=== PATIENT | female | born 1975 | race Caucasian/White ===

== ENCOUNTER 2018-08-13 03:26 | Emergency (ER) | payer MEDICARE, MEDICAID ==
[2018-08-13] MEDS ORDERED: IPRATROPIUM/ALBUTEROL 0.5-2.5 MG/3 ML AMPUL NEB ONE (03:56)
[2018-08-13] MEDS ORDERED: CLONAZEPAM 1 MG TABLET PO ONE (03:56)
[2018-08-13] MEDS ORDERED: NORMAL SALINE 1000 ML 1,000 ML IV ONE (03:57)
[2018-08-13] MEDS ORDERED: ONDANSETRON HCL INJ/PF 4 MG/2 ML SDV IV ONE (03:57)
--- NOTE | 2018-08-13 03:59 | ER Document Report ---
ED General - General Chief Complaint: Nausea/Vomiting Stated Complaint: VOMITING Time Seen by Provider: 08/13/18 03:49 Primary Care Provider: MEGA ECHOLS MD [NO LOCAL MD] - Follow up tomorrow Notes: Patient is a 43-year-old female that comes to the emergency department for chief complaint of sick symptoms for 1 week. She states that she has had a worsening cough to the point that she has vomited 3 times over the past day after coughing episodes. She reports some chills, denies fever. Mild congestion present. Minimal sore throat. Denies particular area of abdominal pain. She has had the influenza vaccine. She smokes, has a history of bipolar, anxiety, PTSD. She is out of her medications including antidepressants, antianxiety medication such as Klonopin. TRAVEL OUTSIDE OF THE [place] IN LAST 30 DAYS: No - Related Data Allergies/Adverse Reactions: No Known Allergies Allergy (Verified 04/13/14 08:54) Past Medical History - General Information source: Patient - Social History Smoking Status: Current Every Day Smoker Smoking Education Provided: Yes - <3 min Frequency of alcohol use: Occasional Drug Abuse: None Lives with: Family Family History: Reviewed & Not Pertinent - Past Medical History Cardiac Medical History: Reports: Hx Hypercholesterolemia Denies: Hx Coronary Artery Disease, Hx Heart Attack, Hx Hypertension Pulmonary Medical History: Reports: Hx Bronchitis Denies: Hx Asthma, Hx COPD, Hx Pneumonia Neurological Medical History: Denies: Hx Cerebrovascular Accident, Hx Seizures GI Medical History: Denies: Hx Hepatitis, Hx Hiatal Hernia, Hx Ulcer Musculoskeletal Medical History: Reports Hx Arthritis - shins and wrist Psychiatric Medical History: Reports: Hx Anxiety, Hx Bipolar Disorder, Hx Depression, Hx Post Traumatic Stress Disorder Infectious Medical History: Denies: Hx Hepatitis Past Surgical History: Reports: Hx Orthopedic Surgery - R hand. Denies: Hx Hyst erectomy, Hx Mastectomy, Hx Open Heart Surgery, Hx Pacemaker - Immunizations Hx Diphtheria, Pertussis, Tetanus Vaccination: Yes - not within 5 years of 2014 Review of Systems - Review of Systems Constitutional: See HPI EENT: See HPI Cardiovascular: No symptoms reported Respiratory: See HPI Gastrointestinal: See HPI Genitourinary: No symptoms reported Female Genitourinary: No symptoms reported Musculoskeletal: No symptoms reported Skin: No symptoms reported Hematologic/Lymphatic: No symptoms reported Neurological/Psychological: No symptoms reported Physical Exam - Vital signs Vitals: Temp Pulse Resp BP Pulse Ox 97.8 F 98 14 111/77 97 08/13/18 03:27 08/13/18 03:27 08/13/18 03:27 08/13/18 03:08/13/18 03:27 - Notes Notes: GENERAL: Alert, interacts well. No acute distress. HEAD: Normocephalic, atraumatic. EYES: Pupils equal, round, and reactive to light. Extraocular movements intact. ENT: Oral mucosa moist, tongue midline. Oropharynx unremarkable. Airway patent. Congestion nasal passages with mixed clear and yellowish discharge, tender over the right maxillary sinus, making sinuses unremarkable. No nasal septal hematoma, TM's intact. NECK: Full range of motion. Supple. Trachea midline. LUNGS: Occasional congested cough. Clear lungs otherwise. No respiratory distress. HEART: Regular rate and rhythm. No murmur ABDOMEN: Soft, non-tender. Non-distended. Bowel sounds present in all 4 quadra nts. GENITOURINARY: Deferred EXTREMITIES: Moves all 4 extremities spontaneously. No edema, normal radial and dorsalis pedis pulses bilaterally. No cyanosis. BACK: no cervical, thoracic, lumbar midline tenderness. No saddle anesthesia, normal distal neurovascular exam. NEUROLOGICAL: Alert and oriented x3. Normal speech. [cranial nerves II through XII grossly intact]. PSYCH: Normal affect, normal mood. SKIN: Warm, dry, normal turgor. No rashes or lesions noted. Course - Re-evaluation Re-evalutation: Patient with congested cough on evaluation. Soft benign abdomen. Clear lungs on auscultation. She does have sinus tenderness on exam, worse on the right in the maxillary sinuses along with sinus congestion and reported intermittent yellowish discharge. Symptoms have been worsening for the course of a week. Suggestive of developing bacterial sinusitis because of the amount of pain she has over her right maxillary sinus. Chest x-ray unremarkable, laboratory workup unremarkable. Patient given IV fluids. She states she feels much better on reevaluation. She was given a single dose of her Klonopin. She has close follow-up for this. Discussion was made with patient. She does have some anterior cervical adenopathy and she is requesting something for this. She also has worsening cough with coughing until vomiting intermittently. No wheezing on my her with a dose of dexamethasone steroid for treatment of suspected bronchitis, she will be treated with amoxicillin for suspected developing bacterial sinusitis, she will be provided with symptom relief in the form of Tessalon, and she will follow-up with her pr imary care for a refill of her prescriptions. Discussed return precautions. Patient states understanding and agreement with plan. - Vital Signs Vital signs: Temp Pulse Resp BP Pulse Ox 98.0 F 77 14 92/48 L 95 08/13/18 06:27 08/13/18 06:27 08/13/18 06:27 08/13/18 06:27 08/13/18 06:27 - Laboratory Result Diagrams: 08/13/18 04:22 08/13/18 04:22 Laboratory results interpreted by me: 08/13/18 08/13/18 04:11 04:22 Chloride 108 H Urine Urobilinogen 2.0 H Urine Ascorbic Acid 40 H Discharge - Discharge Clinical Impression: Upper respiratory infection Qualifiers: URI type: unspecified URI Qualified Code(s): J06.9 - Acute upper respiratory infection, unspecified Sinusitis Qualifiers: Sinusitis location: maxillary Chronicity: acute Recurrence: non-recurrent Qualified Code(s): J01.00 - Acute maxillary sinusitis, unspecified Condition: Stable Disposition: HOME, SELF-CARE Additional Instructions: Your evaluation is consistent with bronchitis and a sinus infection. You have been in treatment this for dexamethasone, take amoxicillin antibiotic as prescribed to completion. Take Tessalon as needed for cough. Take the medication provided from here this morning at night only for cough and sleep only if needed. Follow-up closely with your primary care provider. Return if you worsen including fever, difficulty breathing, or any other concerning or worsening symptoms. Prescriptions: Benzonatate [Tessalon Perle 100 mg Capsule] 100 mg PO Q8HP PRN #20 cap PRN Reason: Amoxicillin Trihydrate [Amoxil 500 mg Capsule] 1,000 mg PO TID 7 Days #42 cap Referrals: MEGA ECHOLS MD [NO LOCAL MD] - Follow up tomorrow
[2018-08-13 04:38] LABS: APPEARANCE,URINE CLOUDY; BILIRUBIN,URINE NEGATIVE (NEGATIVE); COLOR,URINE AMBER; GLUCOSE, URINE NEGATIVE (NEGATIVE); KETONES,URINE NEGATIVE (NEGATIVE); LEUKOCYTE ESTERASE,URINE NEGATIVE (NEGATIVE); NITRITE,URINE NEGATIVE (NEGATIVE); PROTEIN,URINE NEGATIVE (NEGATIVE)
[2018-08-13 04:39] LABS: ABSOLUTE BASOPHILS # (AUTO) 0.1 10^3/uL (0.0-0.2); ABSOLUTE EOSINOPHILS # (AUTO) 0.2 10^3/uL (0.0-0.6); ABSOLUTE LYMPHOCYTES (AUTO) 2.7 10^3/uL (0.5-4.7); ABSOLUTE MONOCYTES (AUTO) 0.5 10^3/uL (0.1-1.4); ABSOLUTE NEUT (AUTO) 4.4 10^3/uL (1.7-8.2); BASOPHILS % (AUTO) 0.9 % (0-2); EOSINOPHILS % (AUTO) 2.1 % (0-6); HEMATOCRIT 38.3 % (36.0-47.0); HEMOGLOBIN 12.9 g/dL (12.0-15.5); LYMPHOCYTES % (AUTO) 34.8 % (13-45); MEAN CORPUSCULAR HGB CONC 33.7 g/dL (32.0-36.0); MEAN CORPUSCULAR VOLUME 92 fl (80-97); MONOCYTES % (AUTO) 6.4 % (3-13); PLATELET COUNT 400 10^3/uL (150-450); RED BLOOD COUNT 4.17 10^6/uL (3.72-5.28); RED CELL DISTRIBUTION WIDTH 13.1 % (11.5-14.0); SEGMENTED NEUTROPHILS % (AUTO) 55.8 % (42-78); TOTAL CELLS COUNTED % (AUTO) 100 %; WHITE BLOOD COUNT 7.9 10^3/uL (4.0-10.5)
[2018-08-13 04:58] LABS: ANION GAP 10 (5-19); BLOOD UREA NITROGEN 13 mg/dL (7-20); CALCIUM 9.9 mg/dL (8.4-10.2); CARBON DIOXIDE 24 mmol/L (22-30); CHLORIDE 108 mmol/L (98-107); GLUCOSE 93 mg/dL (75-110); SODIUM 141.6 mmol/L (137-145)
--- NOTE | 2018-08-13 05:19 | RADIOLOGY REPORT (SQ) ---
EXAM DESCRIPTION: XR CHEST 2 VIEWS COMPLETED DATE/TME: 08/13/2018 03:57 CLINICAL HISTORY: 43 years Female, productive cough x 1 week COMPARISON: April 02, 2014 NUMBER OF VIEWS/TECHNIQUE: 2, Frontal, Lateral FINDINGS: Adequate lung volume, clear parenchyma, normal cardiac silhouette, and intact bony thorax. IMPRESSION: No acute cardiopulmonary findings.
[2018-08-13] MEDS ORDERED: DEXAMETHASONE SOD PHOS INJ 10 MG/1 ML VIAL IV ONE (06:00)
[2018-08-13] MEDS ORDERED: HYDROCODONE/ACETAMINOPHEN 5-325 MG (6 TAB/ER DISP) PO PRN (06:01)
[2018-08-13 06:44] VITALS: BP 92/48
== END 2018-08-13 06:44 | disposition home or self-care (01) ==
LOC: ER 03:26
DX: J06.9 Acute upper respiratory infection, unspecified (principal); J01.00 Acute maxillary sinusitis, unspecified; R11.2 Nausea with vomiting, unspecified; F17.200 Nicotine dependence, unspecified, uncomplicated; E78.00 Pure hypercholesterolemia, unspecified
CPT/HCPCS: 94640; 99284; 96361; 96374; 96375; 36415; 84703; 85025; 80048; 81001; 71046; A9270 ×3; J2405; J7030; J1100; J7620

== ENCOUNTER 2018-10-08 12:57 | Emergency (ER) | payer MEDICARE, MEDICAID ==
[2018-10-08] MEDS ORDERED: IPRATROPIUM/ALBUTEROL 0.5-2.5 MG/3 ML AMPUL NEB ONE (13:56)
[2018-10-08] MEDS ORDERED: KETOROLAC TROMETHAMINE 60 MG/2 ML SDV IM ONE (13:57)
--- NOTE | 2018-10-08 13:58 | ER Document Report ---
ED Medical Screen (RME) - General Chief Complaint: Congestion Stated Complaint: COUGH,CONGESTION,HEADACHE Time Seen by Provider: 10/08/18 13:46 Notes: Patient is a 43-year-old female that presents to the emergency department for chief complaint of cough, congestion, and multiple other points including body aches, nausea and vomiting. Patient states she thinks she has flulike symptoms, she is intense for 4 days now, she reports about a month ago she had similar symptoms and was diagnosed with an upper respiratory tract infection. ROS: Other than noted above, the 12 point review of systems was reviewed with the patient and were negative, all pertinent findings are included in the HPI. PHYSICAL EXAMINATION: Vital signs reviewed. GENERAL: Well-appearing, well-nourished and in no acute distress. HEAD: Atraumatic, normocephalic. EYES: Pupils equal round extraocular movements intact, conjunctiva are normal. ENT: Bilateral nasal turbinate injection, there is a mild effusion behind the right TM, none on the left. NECK: Normal range of motion CV: Heart regular rate and rhythm LUNGS: No respiratory distress Musculoskeletal: Normal range of motion NEUROLOGICAL: Normal speech PSYCH: Normal mood, normal affect. MDM: Patient seen and examined for rapid initial assessment. Vital signs reviewed. A comprehensive ED assessment and evaluation of the patient, analysis of test results and completion of the medical decision making process will be conducted by additional ED providers. *Note is created using voice recognition software and may contain spelling, syntax or grammatical errors. TRAVEL OUTSIDE OF THE [place] IN LAST 30 DAYS: No - Related Data Allergies/Adverse Reactions: No Known Allergies Allergy (Verified 10/08/18 13:46) Past Medical History - Social History Frequency of alcohol use: None Drug Abuse: None - Past Medical History Cardiac Medical History: Reports: Hx Hypercholesterolemia Denies: Hx Coronary Artery Disease, Hx Heart Attack, Hx Hypertension Pulmonary Medical History: Reports: Hx Bronchitis Denies: Hx Asthma, Hx COPD, Hx Pneumonia Neurological Medical History: Denies: Hx Cerebrovascular Accident, Hx Seizures Renal/ Medical History: Denies: Hx Peritoneal Dialysis GI Medical History: Denies: Hx Hepatitis, Hx Hiatal Hernia, Hx Ulcer Musculoskeltal Medical History: Reports Hx Arthritis - shins and wrist Psychiatric Medical History: Reports: Hx Anxiety, Hx Bipolar Disorder, Hx Depression, Hx Post Traumatic Stress Disorder Infectious Medical History: Denies: Hx Hepatitis Past Surgical History: Reports: Hx Orthopedic Surgery - R hand. Denies: Hx Hysterectomy, Hx Mastectomy, Hx Open Heart Surgery, Hx Pacemaker - Immunizations Hx Diphtheria, Pertussis, Tetanus Vaccination: Yes - not within 5 years of 2014 Physical Exam - Vital signs Vitals: Temp Pulse Resp BP Pulse Ox 99.0 F 107 H 20 109/60 97 10/08/18 13:06 10/08/18 13:06 10/08/18 13:06 10/08/18 13:06 10/08/18 13:06 Course - Vital Signs Vital signs: Temp Pulse Resp BP Pulse Ox 99.0 F 107 H 20 109/60 97 10/08/18 13:06 10/08/18 13:06 10/08/18 13:06 10/08/18 13:06 10/08/18 13:06
--- NOTE | 2018-10-08 14:41 | RADIOLOGY REPORT (SQ) ---
EXAM DESCRIPTION: CHEST 2 VIEWS COMPLETED DATE/TIME: 10/08/2018 2:22 pm REASON FOR STUDY: cough, wheezing COMPARISON: Two-view chest 08/13/2018 EXAM PARAMETERS: NUMBER OF VIEWS: two views TECHNIQUE: Digital Frontal and Lateral radiographic views of the chest acquired. RADIATION DOSE: NA LIMITATIONS: none FINDINGS: LUNGS AND PLEURA: No opacities, masses or pneumothorax. No pleural effusion. MEDIASTINUM AND HILAR STRUCTURES: No masses or contour abnormalities. HEART AND VASCULAR STRUCTURES: Heart normal size. No evidence for failure. BONES: No acute findings. HARDWARE: None in the chest. OTHER: No other significant finding. IMPRESSION: NO ACUTE RADIOGRAPHIC FINDING IN THE CHEST. TECHNICAL DOCUMENTATION: JOB ID: [id number] [employer]- All Rights Reserved Reading location - IP/workstation name: [email or web address]
[2018-10-08 15:22] LABS: A TYPE INFLUENZA AG NEGATIVE (NEGATIVE); B INFLUENZA AG NEGATIVE (NEGATIVE)
--- NOTE | 2018-10-08 15:56 | ER Document Report ---
ED General - General Chief Complaint: Congestion Stated Complaint: COUGH,CONGESTION,HEADACHE Time Seen by Provider: 10/08/18 13:46 TRAVEL OUTSIDE OF THE [place] IN LAST 30 DAYS: No - HPI Notes: Patient is a 43-year-old female who presents to the ED complaining of nasal congestion/discharge, dry nonproductive cough, body ache 4 days. She has also had occ n/v and watery diarrhea x3 days. No n/v today. Patient states that she is still eating and drinking without difficulties, but does have a decreased p.o. intake. She is still urinating normally having normal bowel movements. Patient has been using some [id number] meds for symptoms. She denies any significant past medical history including cardiopulmonary history and immunocompromised conditions. H/o MH. Denies any current headache, neck pain, sore throat, chest pain, palpitations, syncope, shortness of breath, wheeze, dyspnea, abdominal pain, urinary retention, dysuria, hematuria, or rash. Pt states has had symptoms like this 1.5mos ago. - Related Data Allergies/Adverse Reactions: No Known Allergies Allergy (Verified 10/08/18 13:46) Past Medical History - Social History Smoking Status: Current Every Day Smoker Frequency of alcohol use: None Drug Abuse: None Family History: Reviewed & Not Pertinent Patient has suicidal ideation: No Patient has homicidal ideation: No - Past Medical History Cardiac Medical History: Reports: Hx Hypercholesterolemia Denies: Hx Coronary Artery Disease, Hx Heart Attack, Hx Hypertension Pulmonary Medical History: Reports: Hx Bronchitis Denies: Hx Asthma, Hx COPD, Hx Pneumonia Neurological Medical History: Denies: Hx Cerebrovascular Accident, Hx Seizures Renal/ Medical History: Denies: Hx Peritoneal Dialysis GI Medical History: Denies: Hx Hepatitis, Hx Hiatal Hernia, Hx Ulcer Musculoskeletal Medical History: Reports Hx Arthritis - shins and wrist Psychiatric Medical History: Reports: Hx Anxiety, Hx Bipolar Disorder, Hx Depression, Hx Post Traumatic Stress Disorder Infectious Medical History: Denies: Hx Hepatitis Past Surgical History: Reports: Hx Orthopedic Surgery - R hand. Denies: Hx Hysterectomy, Hx Mastectomy, Hx Open Heart Surgery, Hx Pacemaker - Immunizations Hx Diphtheria, Pertussis, Tetanus Vaccination: Yes - not within 5 years of 2015 Review of Systems - Review of Systems -: Yes All other systems reviewed and negative Physical Exam - Vital signs Vitals: Temp Pulse Resp BP Pulse Ox 99.0 F 107 H 20 109/60 97 10/08/18 13:06 10/08/18 13:06 10/08/18 13:06 10/08/18 13:06 10/08/18 13:06 - Notes Notes: PHYSICAL EXAMINATION: GENERAL: Well-appearing, well-nourished and in no acute distress. A&Ox4. Answers questions appropriately. Moves comfortably w/o notable distress HEAD: Atraumatic, normocephalic. EYES: Pupils equal round and reactive to light, extraocular movements intact, sclera anicteric, conjunctiva are normal. ENT: EAC clear b/l. TM's intact b/l without erythema or perforation. Nares patent and with clear discharge. oropharynx no erythema without exudates. No tonsilar hypertrophy without erythema or exudate. No palatine shift. Uvula midline. No tongue protrusion. No drooling, hoarseness, or airway compromise. Moist mucous membranes. No sinus tenderness. NECK: Normal range of motion, supple without lymphadenopathy. No rigidity/meningismus. LUNGS: Breath sounds clear to auscultation bilaterally and equal. No wheezes rales or rhonchi. No retractions HEART: Regular rate and rhythm without murmurs, rubs, gallops. ABDOMEN: Soft, nontender, nondistended abdomen. No guarding, no rebound. Normal bowel sounds present. No CVA tenderness bilaterally. No tenderness at [place]Bur[place]. Joshi neg. NEUROLOGICAL: Normal speech, normal gait. PSYCH: Normal mood, normal affect. SKIN: Warm, Dry, normal turgor, no rashes or lesions noted. Course - Re-evaluation Re-evalutation: 10/08/18 15:54 Patient is an afebrile, well-hydrated, 43-year-old female who presents to the ED with n/v/d and acute URI, suspect viral. Vitals are acceptable. PE is otherwise unremarkable. No labs or imaging warranted at this time based on H&P. Patient has no significant cardiopulmonary or immunocompromised medical conditions. Patient's lungs are clear to auscultation bilaterally without tachycardia, hypoxia, or tachypnea. Patient is tolerating p.o. without any difficulties. CXR unremarkable. Low suspicion for any meningitis, sepsis, peritonsillar/pharyngeal abscess, respiratory compromise, severe dehydration, or other emergent systemic condition at this time. Patient is aware this condition can change from initial presentation and she needs to monitor symptoms closely. Conservative measures otherwise for symptoms. Recheck with your PCM in 3-5 days. Return to the ED with any worsening/concerning symptoms otherwise as reviewed in discharge. Patient is in agreement. - Vital Signs Vital signs: Temp Pulse Resp BP Pulse Ox 99.0 F 107 H 20 109/60 97 10/08/18 13:06 10/08/18 13:06 10/08/18 13:06 10/08/18 13:06 10/08/18 13:06 Discharge - Discharge Clinical Impression: Acute URI, Nausea vomiting and diarrhea Condition: Stable Disposition: HOME, SELF-CARE Instructions: Viral Syndrome ([facility]), Diarrhea, Nonspecific ([facility]), Vomiting ([facility]), Upper Respiratory Illness ([facility]) Additional Instructions: Maintain adequate fluid intake tylenol/ibuprofen as needed together every 6 hours (tylenol 1000mg with 600mg ibuprofen) for 1-2 days for body ache/fever over the counter cold medication as needed for symptoms (benadryl, claritin, zyrtec, mucinex, etc). Probiotics may help your stomach. Humidified air may help Wash your hands regularly Wear a mask when coughing F/u: with your PCM in 3-5 days for a recheck Return to the ED with any fever, worsening pain, chest pain, palpitations, syncope, worsening PEREZ, neck pain/stiffness, shortness of breath, wheezing, drooling, trouble swallowing/breathing, abdominal pain, n/v/d, rash, or worsening/concerning symptoms otherwise. Forms: Return to Work Referrals: [facility] [Provider Group] - Follow up as needed [facility] [Provider Group] - Follow up as needed
[2018-10-08 16:28] VITALS: BP 99/55
== END 2018-10-08 16:28 | disposition home or self-care (01) ==
LOC: ER 12:57
DX: J06.9 Acute upper respiratory infection, unspecified (principal); R11.2 Nausea with vomiting, unspecified; R19.7 Diarrhea, unspecified; R51 Headache; F17.200 Nicotine dependence, unspecified, uncomplicated
CPT/HCPCS: 94640; 99284; 96372; 87804; 71046; J1885; A9270; J7620

== ENCOUNTER 2018-10-12 18:35 | Emergency (ER) | payer MEDICARE, MEDICAID ==
--- NOTE | 2018-10-12 18:57 | ER Document Report ---
ED Medical Screen (RME) - General Chief Complaint: Dizziness Stated Complaint: ANXIETY Time Seen by Provider: 10/12/18 18:54 Primary Care Provider: PRESLEY MURRELL MD [Primary Care Provider] - Follow up as needed Mode of Arrival: Medic Information source: Patient TRAVEL OUTSIDE OF THE [place] IN LAST 30 DAYS: No - HPI Patient complains to provider of: dizziness, anxiety Onset: This morning - pt was seen here 3 days ago for URI, N/V-- developed dizziness today with increased anxiety. EMS transported here for further evaluation - Related Data Allergies/Adverse Reactions: No Known Allergies Allergy (Verified 10/12/18 18:39) Past Medical History - Past Medical History Cardiac Medical History: Reports: Hx Hypercholesterolemia Denies: Hx Coronary Artery Disease, Hx Heart Attack, Hx Hypertension Pulmonary Medical History: Reports: Hx Bronchitis Denies: Hx Asthma, Hx COPD, Hx Pneumonia Neurological Medical History: Denies: Hx Cerebrovascular Accident, Hx Seizures Renal/ Medical History: Denies: Hx Peritoneal Dialysis GI Medical History: Denies: Hx Hepatitis, Hx Hiatal Hernia, Hx Ulcer Musculoskeltal Medical History: Reports Hx Arthritis - shins and wrist Psychiatric Medical History: Reports: Hx Anxiety, Hx Bipolar Disorder, Hx Depression, Hx Post Traumatic Stress Disorder Infectious Medical History: Denies: Hx Hepatitis Past Surgical History: Reports: Hx Orthopedic Surgery - R hand. Denies: Hx Hysterectomy, Hx Mastectomy, Hx Open Heart Surgery, Hx Pacemaker - Immunizations Hx Diphtheria, Pertussis, Tetanus Vaccination: Yes - not within 5 years of 2014 Physical Exam - Vital signs Vitals: Temp Pulse Resp BP Pulse Ox 97.6 F 78 18 112/70 100 10/12/18 18:48 10/12/18 18:48 10/12/18 18:48 10/12/18 18:48 10/12/18 18:48 Course - Vital Signs Vital signs: Temp Pulse Resp BP Pulse Ox 97.6 F 78 18 112/70 100 10/12/18 18:48 10/12/18 18:48 10/12/18 18:48 10/12/18 18:48 10/12/18 18:48 Doctor's Discharge - Discharge Referrals: PRESLEY MURRELL MD [Primary Care Provider] - Follow up as needed
[2018-10-12 19:34] LABS: ABSOLUTE LYMPHOCYTES (AUTO) 1.8 10^3/uL (0.5-4.7); ABSOLUTE MONOCYTES (AUTO) 0.4 10^3/uL (0.1-1.4); ABSOLUTE NEUT (AUTO) 5.4 10^3/uL (1.7-8.2); BASOPHILS % (AUTO) 0.4 % (0-2); EOSINOPHILS % (AUTO) 0.1 % (0-6); HEMATOCRIT 36.1 % (36.0-47.0); HEMOGLOBIN 12.5 g/dL (12.0-15.5); LYMPHOCYTES % (AUTO) 24.1 % (13-45); MEAN CORPUSCULAR HEMOGLOBIN 31.6 pg (27.0-33.4); MEAN CORPUSCULAR HGB CONC 34.5 g/dL (32.0-36.0); MEAN CORPUSCULAR VOLUME 92 fl (80-97); MONOCYTES % (AUTO) 4.9 % (3-13); PLATELET COUNT 524 10^3/uL (150-450); RED BLOOD COUNT 3.93 10^6/uL (3.72-5.28); RED CELL DISTRIBUTION WIDTH 13.3 % (11.5-14.0); SEGMENTED NEUTROPHILS % (AUTO) 70.5 % (42-78); TOTAL CELLS COUNTED % (AUTO) 100 %; WHITE BLOOD COUNT 7.7 10^3/uL (4.0-10.5)
[2018-10-12 19:51] LABS: ALANINE AMINOTRANSFERASE 20 U/L (9-52); ALBUMIN 4.5 g/dL (3.5-5.0); ALKALINE PHOSPHATASE 51 U/L (38-126); ANION GAP 11 (5-19); ASPARTATE AMINO TRANSFERASE 17 U/L (14-36); BILIRUBIN,DIRECT 0.3 mg/dL (0.0-0.4); BILIRUBIN,TOTAL 0.5 mg/dL (0.2-1.3); BLOOD UREA NITROGEN 11 mg/dL (7-20); CALCIUM 10.3 mg/dL (8.4-10.2); CARBON DIOXIDE 19 mmol/L (22-30); CHLORIDE 105 mmol/L (98-107); GLUCOSE 104 mg/dL (75-110); POTASSIUM 4.5 mmol/L (3.6-5.0); SODIUM 134.6 mmol/L (137-145); TOTAL PROTEIN 7.5 g/dL (6.3-8.2)
[2018-10-12] MEDS ORDERED: DIAZEPAM 5 MG TABLET PO ONE (22:41)
[2018-10-12 22:46] LABS: APPEARANCE,URINE CLOUDY; BILIRUBIN,URINE NEGATIVE (NEGATIVE); COLOR,URINE YELLOW; GLUCOSE, URINE NEGATIVE (NEGATIVE); KETONES,URINE 20 mg/dL (NEGATIVE); LEUKOCYTE ESTERASE,URINE NEGATIVE (NEGATIVE); NITRITE,URINE NEGATIVE (NEGATIVE); PROTEIN,URINE NEGATIVE (NEGATIVE); URINE SPECIFIC GRAVITY 1.014; UROBILINOGEN,URINE NEGATIVE mg/dL (<2.0)
--- NOTE | 2018-10-12 22:48 | ER Document Report ---
ED General - General Chief Complaint: Dizziness Stated Complaint: ANXIETY Time Seen by Provider: 10/12/18 18:54 Primary Care Provider: PRESLEY MURRELL MD [Primary Care Provider] - Follow up as needed Mode of Arrival: Medic Notes: Patient is a 43-year-old female who presents with multiple complaints. Patient says that she is been without her anxiety medicine for a month because she had to buy medicine to help with her viral cold. She therefore did not have the money to get her anxiety medicine. She is supposed to be on zolpidem as well as Klonopin. She said there is other psych medicines prescribed but cannot remember the name of them. She says that she has had runny nose cough c ongestion. She has pressure on the right ear. She because that she is very dizzy. She says that she is been so anxious that she cannot breathe and she cannot eat and she is lost weight. She says she cannot stop crying. She says she cannot sleep. Also complains of some mild epigastric pain. TRAVEL OUTSIDE OF THE [place] IN LAST 30 DAYS: No - Related Data Allergies/Adverse Reactions: No Known Allergies Allergy (Verified 10/12/18 18:39) Past Medical History - General Information source: Patient - Social History Smoking Status: Current Every Day Smoker Frequency of alcohol use: None Drug Abuse: None Family History: Reviewed & Not Pertinent Patient has suicidal ideation: No Patient has homicidal ideation: No - Past Medical History Cardiac Medical History: Reports: Hx Hypercholesterolemia Denies: Hx Coronary Artery Disease, Hx Heart Attack, Hx Hypertension Pulmonary Medical History: Reports: Hx Bronchitis Denies: Hx Asthma, Hx COPD, Hx Pneumonia Neurological Medical History: Denies: Hx Cerebrovascular Accident, Hx Seizures Renal/ Medical History: Denies: Hx Peritoneal Dialysis GI Medical History: Denies: Hx Hepatitis, Hx Hiatal Hernia, Hx Ulcer Musculoskeletal Medical History: Reports Hx Arthritis - shins and wrist Psychiatric Medical History: Reports: Hx Anxiety, Hx Bipolar Disorder, Hx Depression, Hx Post Traumatic Stress Disorder Infectious Medical History: Denies: Hx Hepatitis Past Surgical History: Reports: Hx Orthopedic Surgery - R hand. Denies: Hx Hysterectomy, Hx Mastectomy, Hx Open Heart Surgery, Hx Pacemaker - Immunizations Hx Diphtheria, Pertussis, Tetanus Vaccination: Yes - not within 5 years of 2015 Review of Systems - Review of Systems Notes: My Normal Review Basic REVIEW OF SYSTEMS: CONSTITUTIONAL : Denies fever, chills, or sweats. Denies recent illness. EENT: Pain behind right ear. Some nasal congestion. CARDIOVASCULAR: Denies chest pain. RESPIRATORY: Denies cough, cold, or chest congestion. Denies shortness of breath, difficulty breathing, or wheezing. GASTROINTESTINAL: Denies abdominal pain. Denies nausea, vomiting, or diarrhea. MUSCULOSKELETAL: Denies neck or back pain or joint pain or swelling. SKIN: Denies rash or skin lesions. NEUROLOGICAL: Denies altered mental status or loss of consciousness. Denies headache. Denies weakness or paralysis or loss of use of either side. Denies problems with gait or speech. Denies sensory or motor loss. PSYCHIATRIC: Anxiety, panic attacks, depression ALL OTHER SYSTEMS REVIEWED AND NEGATIVE. Physical Exam - Vital signs Vitals: Temp Pulse Resp BP Pulse Ox 97.6 F 78 18 112/70 100 10/12/18 18:48 10/12/18 18:48 10/12/18 18:48 10/12/18 18:48 10/12/18 18:48 - Notes Notes: General Appearance: Well nourished, alert, cooperative, patient is constantly crying and tearful and at times hyperventilating during exam. She is extremely anxious. Vitals: reviewed, See vital signs table. Head: no swelling or tenderness to the head Eyes: PERRL, EOMI, Conjuctiva clear Mouth: No decreasd moisture Throat: No tonsillar inflammation, No airway obstruction, No lymphadenopathy Ears: Normal-appearing tympanic membranes bilaterally. Some clear fluid behind right TM. Neck: Supple, no neck tenderness Lungs: No wheezing, No rales, No rhonci, No accessory muscle use, good air exchange bilaterally. Heart: Normal rate, Regular rythm, No murmur, no rub Abdomen: Normal BS, soft, No rigidity, mild epigastric abdominal tenderness, No guarding, no rebound, no abdominal masses, no organomegaly Extremities: strength 5/5 in all extremities, good pulses in all extremities, no swelling or tenderness in the extremities, no edema. Skin: warm, dry, appropriate color, no rash Neuro: speech clear, oriented x 3, normal affect, responds appropriately to questions. Psychiatric: Sometimes hyperventilating and crying and tearful. Very anxious on exam. Course - Re-evaluation Re-evalutation: 10/13/18 00:54 On reevaluation patient is still extremely anxious. She is complaining of muscle aches spasm in her back. She is still tearful and crying and very anxious. I will place an IV and give her some IV fluids since she said that she hit she has not eaten or drank much in the last 24 hours. I will give her a dose of Valium. 10/13/18 05:08 Patient is now saying she does not want to stay and see psychiatry. She says that I have done nothing to help her. She says she has been laying in bed and pain with muscle aches and body aches. I did offer Tylenol Motrin but she says that she can take this at home. I informed her that she does not have an indication for stronger opiate type medications at this time. On exam she has no concerning findings. She continues to say that she has dizziness or vertigo type dizziness because of fluid in her ear however when she talks to me she moves her head back and forth and does not appear dizzy at all. The only time she appears dizzy is when she says "I will show you that I am dizzy" and she wi ll then start moving around as if she is dizzy. She is anxious at times. The Valium did help her anxiety significantly and that she is no longer ventilating. She acknowledges that she probably has a viral URI that is causing some of her symptoms. She does acknowledge as well that she has been off her medications including her Ambien and her Valium. She does not believe that being off her medications as anything to do with her not sleeping or her anxiety. I informed her that these medications are to used to treat her anxiety and help her sleep and therefore I suspect that her being off these is causing her problem. I encouraged her to stay and speak with psychiatry. Patient refuses to stay longer and says she wants to go home. She is not suicidal. She is not homicidal. She is not hallucinating. I do not feel that I can hold her against her will. Will discharge home as she requests. I informed her I want what is best for and I am happy to help her and therefore I said I would write her a short prescription for Ambien as well as her Klonopin. I did look up on the prescription database and she has not had these prescriptions since August therefore I think is appropriate to write them for her. Also offered to write her prescription for meclizine to help with any vertigo that she could be having from a URI. Patient is agreeable with this. I encouraged her follow-up closely with her primary care doctor this week. Patient to return to ER anytime as we are happy to reevaluate her and help her. Dictation of this chart was performed using voice recognition software; therefore, there may be some unintended grammatical errors. - Vital Signs Vital signs: Temp Pulse Resp BP Pulse Ox 97.6 F 78 18 112/70 100 10/12/18 18:48 10/12/18 18:48 10/12/18 18:48 10/12/18 18:48 10/12/18 18:48 - Laboratory Result Diagrams: 10/12/18 19:22 10/12/18 19:22 Laboratory results interpreted by me: 10/12/18 10/12/18 10/12/18 19:22 19:22 19:22 Plt Count 524 H Sodium 134.6 L Carbon Dioxide 19 L Calcium 10.3 H Urine Ketones Urine Ascorbic Acid Salicylates < 1.0 L Acetaminophen < 10 L 10/12/18 22:22 Plt Count Sodium Carbon Dioxide Calcium Urine Ketones 20 H Urine Ascorbic Acid 40 H Salicylates Acetaminophen Discharge - Discharge Clinical Impression: Anxiety, Dizziness URI (upper respiratory infection) Qualifiers: URI type: unspecified URI Qualified Code(s): J06.9 - Acute upper respiratory infection, unspecified Condition: Good Disposition: HOME, SELF-CARE Additional Instructions: Please follow up with your doctor this week. please take your medications as prescribed. please return to the ER at any time if you have worsening of your symptoms, fevers, suicidal ideations, uncontrolled anxiety, or if you feel that you are worsening in any way. Be aware that the prescribed medications can cause dizziness so do not drive after taking them. Prescriptions: Clonazepam [Klonopin 1 mg Tablet] 1 mg PO BID #20 tablet Meclizine HCl [Antivert 25 mg Tablet] 25 mg PO Q8 #15 tablet Zolpidem Tartrate [Ambien 5 mg Tablet] 5 mg PO HSP PRN #15 tablet PRN Reason: difficulty sleeping Referrals: PRESLEY MURRELL MD [Primary Care Provider] - Follow up in 3-5 days
[2018-10-12 22:57] LABS: ACETAMINOPHEN < 10 ug/mL (10-30); ALCOHOL < 10 mg/dL (NONE DETECTED); SALICYLATE < 1.0 mg/dL (2.0-20.0)
[2018-10-12 23:08] LABS: URINE AMPHETAMINES SCREEN NEGATIVE; URINE BARBITURATES SCREEN NEGATIVE; URINE BENZODIAZEPINES SCREEN NEGATIVE; URINE COCAINE SCREEN NEGATIVE; URINE MARIJUANA (THC) SCREEN NEGATIVE; URINE METHADONE SCREEN NEGATIVE; URINE PHENCYCLIDINE SCREEN NEGATIVE
[2018-10-13] MEDS ORDERED: NORMAL SALINE 1000 ML 1,000 ML IV ONE (00:53)
[2018-10-13] MEDS ORDERED: DIAZEPAM INJ 10 MG/2 ML DISP.SYRIN IV ONE (00:53)
[2018-10-13 05:23] VITALS: BP 115/68
--- NOTE | 2018-10-13 07:39 | EKG REPORT ---
SEVERITY:- NORMAL ECG - SINUS RHYTHM : Confirmed by: Juan Bush MD 13-Oct-2018 07:38:58
== END 2018-10-13 05:21 | disposition home or self-care (01) ==
LOC: ER 18:35
DX: F41.9 Anxiety disorder, unspecified (principal); T42.6X6A Underdosing of other antiepileptic and sedative-hypnotic drugs, initial encounter; T42.4X6A Underdosing of benzodiazepines, initial encounter; Z91.120 Patient's intentional underdosing of medication regimen due to financial hardship; Z91.14 Patient's other noncompliance with medication regimen; F32.9 Major depressive disorder, single episode, unspecified; F41.0 Panic disorder [episodic paroxysmal anxiety]; R09.89 Other specified symptoms and signs involving the circulatory and respiratory systems; R05 Cough; R42 Dizziness and giddiness; R10.13 Epigastric pain; F17.200 Nicotine dependence, unspecified, uncomplicated; R09.81 Nasal congestion; R10.816 Epigastric abdominal tenderness; M62.830 Muscle spasm of back; J06.9 Acute upper respiratory infection, unspecified
CPT/HCPCS: 93005; 99284; 96361; 96374; 36415; 80307 ×4; 83690; 84703; 85025; 80053; 81001; 93010; J3360; A9270; J7030

== ENCOUNTER 2019-08-05 02:06 | Emergency (ER) | payer MEDICARE, MEDICAID ==
[2019-08-05] MEDS ORDERED: KETOROLAC TROMETHAMINE INJ/PF 30 MG/1 ML SDV IV ONE (03:25)
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
--- NOTE | 2019-08-05 04:13 | RADIOLOGY REPORT (SQ) ---
EXAM DESCRIPTION: XR CHEST 2 VIEWS COMPLETED DATE/TME: 08/05/2019 03:25 CLINICAL HISTORY: productive cough, chills COMPARISON: 10/08/2018 FINDINGS: Frontal and lateral views of the chest. Cardiomediastinal silhouette: Normal size and contour. Lungs: No consolidation, pneumothorax, or pleural effusion. Bones: No acute osseous abnormality. Upper abdomen: No abnormality identified. IMPRESSION: 1. No acute pulmonary process identified.
[2019-08-05 04:50] LABS: ABSOLUTE EOSINOPHILS # (AUTO) 0.4 10^3/uL (0.0-0.6); ABSOLUTE LYMPHOCYTES (AUTO) 3.9 10^3/uL (0.5-4.7); ABSOLUTE MONOCYTES (AUTO) 0.7 10^3/uL (0.1-1.4); ABSOLUTE NEUT (AUTO) 4.7 10^3/uL (1.7-8.2); BASOPHILS % (AUTO) 0.5 % (0-2); EOSINOPHILS % (AUTO) 4.2 % (0-6); HEMATOCRIT 35.4 % (36.0-47.0); LYMPHOCYTES % (AUTO) 40.1 % (13-45); MEAN CORPUSCULAR HEMOGLOBIN 31.3 pg (27.0-33.4); MEAN CORPUSCULAR HGB CONC 33.9 g/dL (32.0-36.0); MEAN CORPUSCULAR VOLUME 92 fl (80-97); MONOCYTES % (AUTO) 7.2 % (3-13); PLATELET COUNT 427 10^3/uL (150-450); RED BLOOD COUNT 3.84 10^6/uL (3.72-5.28); RED CELL DISTRIBUTION WIDTH 14.1 % (11.5-14.0); TOTAL CELLS COUNTED % (AUTO) 100 %; WHITE BLOOD COUNT 9.8 10^3/uL (4.0-10.5)
[2019-08-05 04:53] LABS: ALBUMIN 4.4 g/dL (3.5-5.0); ALKALINE PHOSPHATASE 47 U/L (38-126); ANION GAP 8 (5-19); ASPARTATE AMINO TRANSFERASE 21 U/L (14-36); BILIRUBIN,TOTAL 0.2 mg/dL (0.2-1.3); BLOOD UREA NITROGEN 23 mg/dL (7-20); CALCIUM 9.6 mg/dL (8.4-10.2); CARBON DIOXIDE 26 mmol/L (22-30); CHLORIDE 107 mmol/L (98-107); GLUCOSE 75 mg/dL (75-110); POTASSIUM 4.7 mmol/L (3.6-5.0); TOTAL PROTEIN 7.2 g/dL (6.3-8.2)
[2019-08-05] MEDS ORDERED: KETOROLAC TROMETHAMINE 60 MG/2 ML SDV IM ONE (05:25)
[2019-08-05 05:32] LABS: APPEARANCE,URINE SLIGHTLY-CLOUDY; BILIRUBIN,URINE NEGATIVE (NEGATIVE); COLOR,URINE YELLOW; GLUCOSE, URINE NEGATIVE (NEGATIVE); KETONES,URINE NEGATIVE (NEGATIVE); LEUKOCYTE ESTERASE,URINE NEGATIVE (NEGATIVE); NITRITE,URINE POSITIVE (NEGATIVE); PROTEIN,URINE NEGATIVE (NEGATIVE); URINE SPECIFIC GRAVITY 1.023; UROBILINOGEN,URINE NEGATIVE mg/dL (<2.0)
[2019-08-05] MEDS ORDERED: CEPHALEXIN 500 MG CAPSULE PO ONE (05:58)
[2019-08-05] MEDS ORDERED: DEXAMETHASONE SOD PHOS INJ 10 MG/1 ML VIAL IM ONE (05:58)
[2019-08-05 09:06] VITALS: BP 93/64
== END 2019-08-05 09:04 | disposition home or self-care (01) ==
LOC: ER 02:06
DX: R05 Cough (principal); R11.2 Nausea with vomiting, unspecified; R52 Pain, unspecified; R61 Generalized hyperhidrosis; R68.83 Chills (without fever); F17.200 Nicotine dependence, unspecified, uncomplicated; Z59.0 Homelessness
CPT/HCPCS: 99284; 96372; 36415; 83690; 84703; 85025; 80053; 81001; 71046; A9270; J1885; J1100